=== PATIENT | male | born 1985 | race Two or more races ===

== ENCOUNTER 2017-07-12 18:56 | Emergency (ER) | payer MEDICAID ==
[~2017-07-12] VITALS: Ht 182.9 cm; Wt 115.2 kg
[2017-07-12 19:03] VITALS: Ht 182.9 cm; Wt 115.2 kg
[2017-07-12 23:25] VITALS: BP 121/76
== END 2017-07-12 23:25 | disposition home or self-care (01) ==
LOC: ED 18:56
DX: S43.101A Unspecified dislocation of right acromioclavicular joint, initial encounter (principal); W05.1XXA Fall from non-moving nonmotorized scooter, initial encounter; Y93.89 Activity, other specified; Y92.89 Other specified places as the place of occurrence of the external cause; Y99.8 Other external cause status; M94.0 Chondrocostal junction syndrome [Tietze]
CPT/HCPCS: 90715; J1885; J2270